=== PATIENT | female | born 1995 | race Hispanic/Latino ===

== ENCOUNTER 2016-11-06 20:01 | Emergency (ER) | payer OTHER ==
[2016-11-06] MEDS ORDERED: NORCO 5/325MG TABLET (BULK) As Ordered ONE (20:46)
--- NOTE | 2016-11-06 20:58 | EDDOCDS ---
Nurse's Notes [facility] Name: Catherine Hobbs Age: 20 yrs Sex: Female : 1995 Arrival Date: 11/06/2016 Time: 20:01 Bed I9 / 22 Private MD: Fior Brewster M. Diagnosis: Jaw pain Presentation: 11/06 20:08 Presenting complaint: Patient states: Toothache for 2 days. Adult Sepsis Screening: The rs3 patient does not have new or worsening altered mentation. Patient's respiratory rate is less than 22. Systolic blood pressure is greater than 100. Patient has a qSOFA score of 0- Negative Sepsis Screen. Suicide/Homicide risk assessment- the patient denies having any suicidal and/or homicidal ideations and does not present with any other emotional, behavioral or mental health complaints. 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 Transition of care: patient was not received from another setting of care. 20:08 Acuity: SANIYA Level 5 rs3 20:08 Method Of Arrival: Walkin/Carried/Asstd rs3 Triage Assessment: 20:09 General: Appears in no apparent distress. Pain: Location: mouth. Pt Declines HIV rs3 testing. EENT: Reports pain Pain is 10 out of 10 on a pain scale. 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 none - PMHx: none; - PSHx: none; - Social history: Smoking status: Patient states was never smoker of tobacco. No barriers to communication noted, The patient speaks fluent Emirati. - Family history: Not pertinent. - : The pt / caregiver states he / she is not on anticoagulants. Home medication list is obtained from the patient. - Exposure Risk Screening:: None identified. Screenin:55 Screening information is obtained from the patient. Fall risk: No risks identified. ttb Assistance ADL's: requires no assistance with activities of daily living. Abuse/DV Screen: The patient / caregiver reports he/she is: not in a situation that causes fear, pain or injury. Nutritional screening: No deficits noted. Advance Directives: Currently, there is no health care proxy. home support is adequate. Assessment: 20:55 General: Appears in no apparent distress, well nourished, well groomed, Behavior is ttb appropriate for age, cooperative, pleasant. Pain: Location: mouth. Neurological: Level of Consciousness is awake, alert. Cardiovascular: Chest pain is denied. Respiratory: No deficits noted. Airway is patent Respiratory effort is even, unlabored, Denies cough, shortness of breath. Derm: Skin is normal. Injury Description: No known injury. Vital Signs: 20:04 BP 135 / 65; Pulse 84; Resp 18; Temp 97.4; Pulse Ox 100% ; Weight 61.23 kg; Height 5 elp ft. 2 in. (157.48 cm); Pain 10/10; 20:04 Body Mass Index 24.69 (61.23 kg, 157.48 cm) [facility] Vitals: 20:04 Log In Time: November 06, 2016 at 20:00. [facility] ED Course: 20:03 Patient visited by Nasra Fuentes PCA. elp 20:03 Fior Brewster is Private Physician. elp 20:03 Patient moved to Waiting elp 20:04 Patient moved to Pre RCE elp 20:08 Triage Initiated rs3 20:16 Matt Workman FNP [facility]. ke 20:16 Patient visited by Matt Workman FNP. ke 20:16 Patient visited by Matt Workman FNP. ke 20:16 Patient moved to I ms18 20:26 Your, Dentist is Referral Physician. ke 20:52 [facility] Payment Agreement was scanned into [employer] and attached to record. [email or web address] 20:55 The patient / caregiver is instructed regarding the plan of care and ED course. ttb Accompanied by Family Member, Significant Other, Patient has correct armband on for positive identification. 20:55 No IV's were initiated during this patient's visit. No procedures done that require ttb assistance. Administered Medications: 20:55 Drug: HYDROcodone-acetaminophen 4 pack- 1 packets [hydrocodone 5 mg-acetaminophen 325 ttb mg tablet (1 tabs)] {Co-Signature: aimee (Livan Swain RN).} Route: PO; Order Results: There are currently no results for this order. Outcome: 20:28 Discharge ordered by Provider. ke 20:55 Discharge Assessment: Patient awake, alert and oriented x 3. No cognitive and/or ttb functional deficits noted. Patient verbalized understanding of disposition instructions. Patient awake and alert. patient administered narcotics - no. The following High Risk Discharge criteria are identified: None. Discharged to home ambulatory, with significant other. Condition: good Condition: stable Condition: improved. Discharge instructions given to patient, significant other, Instructed on discharge instructions, follow up and referral plans. medication usage, no driving heavy equipment, no drinking with medication, Demonstrated understanding of instructions, medications, no d/d with narcs, increase fluids with constipation Pt was receptive of discharge instructions/ teaching. Prescriptions given X 1, meds dispensed. No special radiology studies were completed. Property :Personal belongings accompany Pt. 20:57 Patient left the ED. ttb Signatures: Matt Workman, CHILDREN COUNSELOR CHILDREN COUNSELOR Clari FelderRN RN rs3 Raquel Rivera RN RN ttb Nasra Fuentes, ROAD MACHINE RUNNER ROAD MACHINE RUNNER Martita Knapp RN RN ms18 Samira Flood, Reg Reg ks16 Livan alvarezb MTDD
--- NOTE | 2016-11-06 20:58 | EDDOCDS ---
Physician Documentation [facility] Name: Catherine Hobbs Age: 20 yrs Sex: Female : 1995 Arrival Date: 11/06/2016 Time: 20:01 Bed I9 / 22 Private MD: Fior Brewster M. Disposition: 11/06/16 20:28 Discharged to Home/Self Care. Impression: Jaw pain. - Condition is Stable. - Discharge Instructions: Dental Pain. - Prescriptions for [place] 5- 325 mg Oral Tablet - take 1 tablet by ORAL route every 6 hours As needed MDD: 4 tabs; 20 tablet. - Medication Reconciliation, Local Pharmacy Hours form. - Follow up: Your, Dentist; When: As soon as possible; Reason: Continuance of care. - Problem is an ongoing problem. - Symptoms are unchanged. Historical: - Allergies: PENICILLINS (Rash); - Home Meds: 1. none - PMHx: none; - PSHx: none; - Social history: Smoking status: Patient states was never smoker of tobacco. No barriers to communication noted, The patient speaks fluent Peruvian. - Family history: Not pertinent. - : The pt / caregiver states he / she is not on anticoagulants. Home medication list is obtained from the patient. - Exposure Risk Screening:: None identified. 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 2 in. (157.48 cm); Pain 10/10; 20:04 Body Mass Index 24.69 (61.23 kg, 157.48 cm) elp MDM: 20:26 HYDROcodone-acetaminophen 4 pack- 5 mg-325 mg 1 packets PO Per package directions; ke Dispense with patient. 1 po q4h prn for pain ordered. 20:51 Financial registration complete. zo 20:52 [facility] Payment Agreement was scanned into [employer] and attached to record. [email or web address] Administered Medications: 20:55 Drug: HYDROcodone-acetaminophen 4 pack- 1 packets [hydrocodone 5 mg-acetaminophen 325 ttb mg tablet (1 tabs)] {Co-Signature: aimee Swain RN).} Route: PO; Signatures: Matt Workman, MEDICAL CUSTOMER SERVICE REPRESENTATIVE MEDICAL CUSTOMER SERVICE REPRESENTATIVE Adonay Rogers Rosemary, RN RN rs3 Raquel Rivera RN RN ttb Samira Flood, Reg Reg ks16 Livan yu The chart was reviewed and I authenticate all verbal orders and agree with the evaluation and treatment provided.Attachments: 20:52 [facility] Payment Agreement ks16 MTDD
--- NOTE | 2016-11-08 21:58 | EDDOCDS ---
Physician Documentation [facility] Name: Catherine Hobbs Age: 20 yrs Sex: Female : 1995 Arrival Date: 11/06/2016 Time: 20:01 Bed I9 / 22 Private MD: Fior Brewster M. Disposition: 11/06/16 20:28 Discharged to Home/Self Care. Impression: Jaw pain. - Condition is Stable. - Discharge Instructions: Dental Pain. - Prescriptions for [place] 5- 325 mg Oral Tablet - take 1 tablet by ORAL route every 6 hours As needed MDD: 4 tabs; 20 tablet. - Medication Reconciliation, Local Pharmacy Hours form. - Follow up: Your, Dentist; When: As soon as possible; Reason: Continuance of care. - Problem is an ongoing problem. - Symptoms are unchanged. Historical: - Allergies: PENICILLINS (Rash); - Home Meds: 1. none - PMHx: none; - PSHx: none; - Social history: Smoking status: Patient states was never smoker of tobacco. No barriers to communication noted, The patient speaks fluent Polish. - Family history: Not pertinent. - : The pt / caregiver states he / she is not on anticoagulants. Home medication list is obtained from the patient. - Exposure Risk Screening:: None identified. 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 2 in. (157.48 cm); Pain 10/10; 20:04 Body Mass Index 24.69 (61.23 kg, 157.48 cm) elp MDM: 20:26 HYDROcodone-acetaminophen 4 pack- 5 mg-325 mg 1 packets PO Per package directions; ke Dispense with patient. 1 po q4h prn for pain ordered. 20:51 Financial registration complete. zo 20:52 [facility] Payment Agreement was scanned into [employer] and attached to record. [email or web address] 11/07 06:21 T-Sheet-- Draft Copy was scanned into [employer] and attached to record. hs2 Administered Medications: 11/06 20:55 Drug: HYDROcodone-acetaminophen 4 pack- 1 packets [hydrocodone 5 mg-acetaminophen 325 ttb mg tablet (1 tabs)] {Co-Signature: aimee (Livan Swain RN).} Route: PO; Signatures: Matt Workman FNP FNP ke Olin, Zoeann zo Soosairaj, Rosemary, RN RN rs3 Raquel Rivera RN RN ttb Samira Flood, Reg Reg ks16 Mandy Garces, Reg Reg hs2 Livan yu The chart was reviewed and I authenticate all verbal orders and agree with the evaluation and treatment provided.Attachments: 20:52 [facility] Payment Agreement [email or web address] 11/07 06:21 T-Sheet-- Draft Copy hs2 Chart Complete MTDD
--- NOTE | 2016-11-08 21:58 | EDDOCDS ---
Physician Documentation [facility] Name: Catherine Hobbs Age: 20 yrs Sex: Female : 1995 Arrival Date: 11/06/2016 Time: 20:01 Bed I9 / 22 Private MD: Fior Brewster M. Disposition: 11/06/16 20:28 Discharged to Home/Self Care. Impression: Jaw pain. - Condition is Stable. - Discharge Instructions: Dental Pain. - Prescriptions for [place] 5- 325 mg Oral Tablet - take 1 tablet by ORAL route every 6 hours As needed MDD: 4 tabs; 20 tablet. - Medication Reconciliation, Local Pharmacy Hours form. - Follow up: Your, Dentist; When: As soon as possible; Reason: Continuance of care. - Problem is an ongoing problem. - Symptoms are unchanged. Historical: - Allergies: PENICILLINS (Rash); - Home Meds: 1. none - PMHx: none; - PSHx: none; - Social history: Smoking status: Patient states was never smoker of tobacco. No barriers to communication noted, The patient speaks fluent Danish. - Family history: Not pertinent. - : The pt / caregiver states he / she is not on anticoagulants. Home medication list is obtained from the patient. - Exposure Risk Screening:: None identified. 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 2 in. (157.48 cm); Pain 10/10; 20:04 Body Mass Index 24.69 (61.23 kg, 157.48 cm) elp MDM: 20:26 HYDROcodone-acetaminophen 4 pack- 5 mg-325 mg 1 packets PO Per package directions; ke Dispense with patient. 1 po q4h prn for pain ordered. 20:51 Financial registration complete. zo 20:52 [facility] Payment Agreement was scanned into [employer] and attached to record. [email or web address] 11/07 06:21 T-Sheet-- Draft Copy was scanned into [employer] and attached to record. hs2 Administered Medications: 11/06 20:55 Drug: HYDROcodone-acetaminophen 4 pack- 1 packets [hydrocodone 5 mg-acetaminophen 325 ttb mg tablet (1 tabs)] {Co-Signature: aimee (Livan Swain RN).} Route: PO; Signatures: Matt Workman FNP FNP ke Olin, Zoeann zo Soosairaj, Rosemary, RN RN rs3 Raquel Rivera RN RN ttb Samira Flood, Reg Reg ks16 Mandy Garces, Reg Reg hs2 Livan yu The chart was reviewed and I authenticate all verbal orders and agree with the evaluation and treatment provided.Attachments: 20:52 [facility] Payment Agreement [email or web address] 11/07 06:21 T-Sheet-- Draft Copy hs2 Chart Complete MTDD
--- NOTE | 2016-11-08 21:58 | EDDOCDS ---
Nurse's Notes [facility] Name: Catherine Hobbs Age: 20 yrs Sex: Female : 1995 Arrival Date: 11/06/2016 Time: 20:01 Bed I9 / 22 Private MD: Fior Brewster M. Diagnosis: Jaw pain Presentation: 11/06 20:08 Presenting complaint: Patient states: Toothache for 2 days. Adult Sepsis Screening: The rs3 patient does not have new or worsening altered mentation. Patient's respiratory rate is less than 22. Systolic blood pressure is greater than 100. Patient has a qSOFA score of 0- Negative Sepsis Screen. Suicide/Homicide risk assessment- the patient denies having any suicidal and/or homicidal ideations and does not present with any other emotional, behavioral or mental health complaints. Status: Patient is not a health services information specialist or dependent. Transition of care: patient was not received from another setting of care. 20:08 Acuity: SANIYA Level 5 rs3 20:08 Method Of Arrival: Walkin/Carried/Asstd rs3 Triage Assessment: 20:09 General: Appears in no apparent distress. Pain: Location: mouth. Pt Declines HIV rs3 testing. EENT: Reports pain Pain is 10 out of 10 on a pain scale. 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 none - PMHx: none; - PSHx: none; - Social history: Smoking status: Patient states was never smoker of tobacco. No barriers to communication noted, The patient speaks fluent Faroese. - Family history: Not pertinent. - : The pt / caregiver states he / she is not on anticoagulants. Home medication list is obtained from the patient. - Exposure Risk Screening:: None identified. Screenin:55 Screening information is obtained from the patient. Fall risk: No risks identified. ttb Assistance ADL's: requires no assistance with activities of daily living. Abuse/DV Screen: The patient / caregiver reports he/she is: not in a situation that causes fear, pain or injury. Nutritional screening: No deficits noted. Advance Directives: Currently, there is no health care proxy. home support is adequate. Assessment: 20:55 General: Appears in no apparent distress, well nourished, well groomed, Behavior is ttb appropriate for age, cooperative, pleasant. Pain: Location: mouth. Neurological: Level of Consciousness is awake, alert. Cardiovascular: Chest pain is denied. Respiratory: No deficits noted. Airway is patent Respiratory effort is even, unlabored, Denies cough, shortness of breath. Derm: Skin is normal. Injury Description: No known injury. Vital Signs: 20:04 BP 135 / 65; Pulse 84; Resp 18; Temp 97.4; Pulse Ox 100% ; Weight 61.23 kg; Height 5 elp ft. 2 in. (157.48 cm); Pain 10/10; 20:04 Body Mass Index 24.69 (61.23 kg, 157.48 cm) [facility] Vitals: 20:04 Log In Time: November 06, 2016 at 20:00. [facility] ED Course: 20:03 Patient visited by Nasra Fuentes PCA. elp 20:03 Fior Brewster is Private Physician. elp 20:03 Patient moved to Waiting elp 20:04 Patient moved to Pre RCE elp 20:08 Triage Initiated rs3 20:16 [facility] Workman FNP [facility]. ke 20:16 Patient visited by Matt Workman FNP. ke 20:16 Patient visited by Matt Workman FNP. ke 20:16 Patient moved to I ms18 20:26 Your, Dentist is Referral Physician. ke 20:52 [facility] Payment Agreement was scanned into [employer] and attached to record. ks16 20:55 The patient / caregiver is instructed regarding the plan of care and ED course. ttb Accompanied by Family Member, Significant Other, Patient has correct armband on for positive identification. 20:55 No IV's were initiated during this patient's visit. No procedures done that require ttb assistance. 21:09 Patient name changed from Catherine\S\\S\Hobbs\S\ to Catherine\S\ \S\Hobbs. EDMS 11/07 06:21 T-Sheet-- Draft Copy was scanned into [employer] and attached to record. hs2 Administered Medications: 11/06 20:55 Drug: HYDROcodone-acetaminophen 4 pack- 1 packets [hydrocodone 5 mg-acetaminophen 325 ttb mg tablet (1 tabs)] {Co-Signature: aimee (Livan Swain RN).} Route: PO; Order Results: There are currently no results for this order. Outcome: 20:28 Discharge ordered by Provider. elliot 20:55 Discharge Assessment: Patient awake, alert and oriented x 3. No cognitive and/or ttb functional deficits noted. Patient verbalized understanding of disposition instructions. Patient awake and alert. patient administered narcotics - no. The following High Risk Discharge criteria are identified: None. Discharged to home ambulatory, with significant other. Condition: good Condition: stable Condition: improved. Discharge instructions given to patient, significant other, Instructed on discharge instructions, follow up and referral plans. medication usage, no driving heavy equipment, no drinking with medication, Demonstrated understanding of instructions, medications, no d/d with narcs, increase fluids with constipation Pt was receptive of discharge instructions/ teaching. Prescriptions given X 1, meds dispensed. No special radiology studies were completed. Property :Personal belongings accompany Pt. 20:57 Patient left the ED. ttb Signatures: Dispatcher [employer] EDMS Matt Workman, TELEMARKETING SUPERVISOR TELEMARKETING SUPERVISOR Clari FelderRN RN rs3 Raquel Rivera RN RN ttb Nasra Fuentes, LICENSE CLERK LICENSE CLERK reyesp Martita Horn RN RN ms18 Samira Flood, Reg Reg ks16 Mandy Garces, Reg Reg hs2 Livan yu Chart Complete MTDD
== END 2016-11-06 20:57 | disposition home or self-care (01) ==
LOC: M ED 20:01
DX: R68.84 Jaw pain (principal); K08.89 Other specified disorders of teeth and supporting structures; Z88.0 Allergy status to penicillin

== ENCOUNTER → 2018-02-22 | Outpatient (REF) | payer OTHER | LOC: M SFHCLERA 13:47 | DX: R05 Cough (principal) ==

== ENCOUNTER 2018-03-19 19:53 | Emergency (ER) | payer OTHER ==
[2018-03-19 20:38] LABS: KETONE, URINE AUTO RFX NEGATIVE (NEGATIVE); LEUKOCYTE ESTERASE UR AUTO RFX NEGATIVE (NEGATIVE); MUCUS, URINE RFX SMALL (NEGATIVE); NITRITE, URINE AUTO RFX POSITIVE (NEGATIVE); RBC, URINE AUTO RFX 1 /HPF (0-3); SPECIFIC GRAVITY UR AUTO RFX 1.021 (1.002-1.035); SQUAM EPITHELIAL CELL UR AURFX 2 /HPF (0-6); WBC, URINE AUTO RFX 0 /HPF (0-3)
[2018-03-19] MEDS: NITROFURANTOIN (MACROBID) 100 MG CAP PO (22:48)
== END 2018-03-19 22:53 | disposition home or self-care (01) ==
LOC: M ED 19:53
DX: N30.00 Acute cystitis without hematuria (principal); Z88.0 Allergy status to penicillin
CPT/HCPCS: 81001